=== PATIENT | male | born 1960 | race Caucasian/White ===

== ENCOUNTER 2023-12-24 20:07 | Emergency (ER) | payer MEDICARE, MEDICAID ==
[~2023-12-24] VITALS: Ht 182.9 cm; Wt 81.8 kg
[2023-12-24 20:25] VITALS: BP 128/67; PULSE 97; RESP 14; O2SAT 100
== END 2023-12-24 21:40 ==
LOC: ER 20:07 → EDBD 20:07 → ER 21:40
DX: F10.129 Alcohol abuse with intoxication, unspecified (principal); Y90.9 Presence of alcohol in blood, level not specified; F17.210 Nicotine dependence, cigarettes, uncomplicated; F12.90 Cannabis use, unspecified, uncomplicated